=== PATIENT | male | born 1935 | race Caucasian/White ===

== ENCOUNTER 2016-11-26 12:34 | Inpatient (IN) | payer OTHER ==
[~2016-11-26] VITALS: Ht 185.4 cm; Wt 107.7 kg
[2016-11-26] MEDS ORDERED: COREG3.125 M1 PO (13:09)
[2016-11-26] MEDS ORDERED: CRESTOR40 MG PO (13:10)
[2016-11-26] MEDS ORDERED: DOXAZOSIN MESYLA4 MG PO (13:10)
[2016-11-26] MEDS ORDERED: XARELTO20 MG PO (13:11)
[2016-11-26] MEDS ORDERED: LISINOPRIL20 MG PO (13:11)
[2016-11-26] MEDS ORDERED: VESICARE5 MG PO (13:12)
[2016-11-26] MEDS ORDERED: CHLORZOXAZONE (13:13)
[2016-11-26] MEDS ORDERED: TYLENO (13:13)
[2016-11-26 13:41] LABS: BASOPHIL COUNT 0.1 K/uL (0-0.1); EOSINOPHIL (%) 1.1 % (0-5); EOSINOPHIL COUNT 0.1 K/uL (0-0.3); HEMATOCRIT 47.3 % (38.0-50.0); IMMATURE GRANULOCYTE (%) 0.2 % (0.0-0.7); INSTRUMENT ABS NEUTROPHIL CT 6.6 K/uL; LYMPHOCYTE COUNT 0.7 K/uL (1.0-2.8); MCH 32.2 PG (29.0-34.0); MCV 94.6 FL (86-99); MEAN PLAT.VOLUME 10.6 uM^3 (9.0-12.4); MONOCYTE (%) 7.9 % (3-12); MONOCYTE COUNT 0.6 K/uL (0-0.8); NEUTROPHIL (%) 81.5 % (45-76); NEUTROPHIL COUNT 6.6 K/uL (1.8-6.4); PLATELET COUNT 149 K/uL (156-360); RBC DIS.WIDTH-CV 12.8 % (11.8-14.6); RBC DIS.WIDTH-SD 43.8 % (39-53); WHITE BLOOD COUNT 8.1 K/uL (4.1-10.2)
[2016-11-26 13:50] LABS: CHLORIDE 107 mEq/L (99-109); POTASSIUM 3.9 mEq/L (3.7-5.4); SODIUM 142 mEq/L (136-147)
[2016-11-26 13:52] LABS: GLUCOSE 108 mg/dL (70-99)
[2016-11-26 13:54] LABS: ANION GAP 11 MEQ/L (2-14); TOTAL BILIRUBIN 0.8 mg/dL (0.0-1.0)
[2016-11-26 13:56] LABS: ALKALINE PHOSPHATASE 76 IU/L (3-129); GFR ESTIMATE (CALCULATED) > 59 mL/min/
[2016-11-26 13:57] LABS: UREA NITROGEN (BUN) 16 mg/dL (9-23)
[2016-11-26 14:02] LABS: TROP-I INTERPRETATION NEGATIVE; TROPONIN-I 0.03 ng/mL (0.0-0.30)
[2016-11-26 15:11] LABS: ADD MIUA? YES; BILIRUBIN NEGATIVE; BLOOD MODERATE; COLOR YELLOW ((YELLOW)); GLUCOSE (STRIP) NEGATIVE; KETONES NEGATIVE; LEUKOCYTES NEGATIVE; NITRITE NEGATIVE; PROTEIN (STRIP) 100; UROBILINOGEN 0.2 MG/DL (0.2-1.0)
[2016-11-26 15:17] LABS: BACTERIA NONE SEEN /HPF; EPITHELIAL CELLS NONE SEEN /HPF; MUCUS TRACE /LPF; RED BLOOD CELLS NONE SEEN /HPF (0-5); WHITE BLOOD CELLS 0-5 /HPF (0-5)
[2016-11-26] MEDS ORDERED: SUPER BETA PROSTATE PO (17:15)
[2016-11-26 20:48] LABS: TROP-I INTERPRETATION NEGATIVE; TROPONIN-I 0.03 ng/mL (0.0-0.30)
[2016-11-26 21:45] VITALS: BP 165/89
[2016-11-27 01:57] LABS: EOSINOPHIL (%) 0.3 % (0-5); HEMATOCRIT 45.2 % (38.0-50.0); IMMATURE GRANULOCYTE (%) 0.3 % (0.0-0.7); INSTRUMENT ABS NEUTROPHIL CT 8.4 K/uL; LYMPHOCYTE COUNT 0.8 K/uL (1.0-2.8); MCH 31.8 PG (29.0-34.0); MCHC 34.1 G/DL (30.0-36.0); MCV 93.4 FL (86-99); MONOCYTE (%) 9.5 % (3-12); NEUTROPHIL (%) 81.9 % (45-76); NEUTROPHIL COUNT 8.4 K/uL (1.8-6.4); PLATELET COUNT 141 K/uL (156-360); RBC DIS.WIDTH-CV 12.6 % (11.8-14.6); RBC DIS.WIDTH-SD 43.6 % (39-53); RED BLOOD COUNT 4.84 M/uL (4.00-5.50); WHITE BLOOD COUNT 10.2 K/uL (4.1-10.2)
[2016-11-27 02:07] LABS: CHLORIDE 108 mEq/L (99-109); POTASSIUM 3.8 mEq/L (3.7-5.4); SODIUM 140 mEq/L (136-147)
[2016-11-27 02:09] LABS: GLUCOSE 131 mg/dL (70-99)
[2016-11-27 02:10] LABS: ANION GAP 11 MEQ/L (2-14)
[2016-11-27 02:13] LABS: GFR ESTIMATE (CALCULATED) > 59 mL/min/
[2016-11-27 02:14] LABS: UREA NITROGEN (BUN) 15 mg/dL (9-23)
[2016-11-27 02:18] LABS: TROP-I INTERPRETATION NEGATIVE; TROPONIN-I 0.03 ng/mL (0.0-0.30)
[2016-11-27 03:13] LABS: HDL CHOLESTEROL 28 MG/DL (Desirable>=40); LDL CHOLESTEROL 44 mg/dL (Desirable<100); NON-HDL CHOLESTEROL 67 mg/dL (Desirable<160); TOTAL CHOLESTEROL 95 mg/dL (Desirable<200); TRIGLYCERIDES 117 MG/DL (Normal: <150)
[2016-11-27 03:56] VITALS: BP 142/80
[2016-11-27 07:04] LABS: ANION GAP 8 MEQ/L (2-14); CHLORIDE 108 MEQ/L (99-109); GFR ESTIMATE (CALCULATED) > 59 mL/min/; GLUCOSE 120 mg/dL (70-99); POTASSIUM 3.8 MEQ/L (3.7-5.4); SAMPLE HEMOLYSIS CHECK 0; SAMPLE ICTERIC CHECK 0; SAMPLE LIPEMIA CHECK 0; SODIUM 141 MEQ/L (136-147); UREA NITROGEN (BUN) 15 mg/dL (9-23)
[2016-11-27 08:10] VITALS: BP 173/99
[2016-11-27 12:48] VITALS: BP 155/91
[2016-11-27 20:41] VITALS: BP 171/87
[2016-11-28 00:13] VITALS: BP 170/86
[2016-11-28 04:07] VITALS: BP 155/79
[2016-11-28 08:03] VITALS: BP 157/93
[2016-11-28 08:17] LABS: Estimated Average Glucose 123 mg/dL (70-123); HEMOGLOBIN A1c (GLYCOHEMOGLOB) 5.9 % HGB (Below 5.7)
[2016-11-28 19:37] VITALS: BP 163/94
[2016-11-29 11:33] VITALS: BP 185/111
[2016-11-29 19:44] VITALS: BP 173/91
[2016-11-29 23:07] VITALS: BP 155/95
[2016-11-30 04:00] VITALS: BP 191/97
[2016-11-30 07:37] VITALS: BP 162/93
[2016-11-30 12:13] VITALS: BP 166/88
[2016-11-30 12:15] LABS: ADD MIUA? YES; BILIRUBIN NEGATIVE; BLOOD SMALL; COLOR YELLOW ((YELLOW)); GLUCOSE (STRIP) NEGATIVE; KETONES NEGATIVE; LEUKOCYTES NEGATIVE; NITRITE NEGATIVE; PROTEIN (STRIP) 30; SPECIFIC GRAVITY 1.021 (1.000-1.030); UROBILINOGEN 0.2 MG/DL (0.2-1.0)
[2016-11-30 12:32] LABS: BACTERIA NONE SEEN /HPF; EPITHELIAL CELLS RARE /HPF; MUCUS 1+ /LPF; RED BLOOD CELLS 0-5 /HPF (0-5); WHITE BLOOD CELLS 0-5 /HPF (0-5)
[2016-11-30 14:40] LABS: HEMATOCRIT 43.3 % (38.0-50.0); MCH 32.2 PG (29.0-34.0); MCHC 34.2 G/DL (30.0-36.0); MCV 94.1 FL (86-99); MEAN PLAT.VOLUME 10.5 uM^3 (9.0-12.4); PLATELET COUNT 148 K/uL (156-360); RBC DIS.WIDTH-SD 44.3 % (39-53); WHITE BLOOD COUNT 9.4 K/uL (4.1-10.2)
[2016-11-30 15:55] VITALS: BP 178/95
[2016-11-30 15:58] LABS: ANION GAP 6 MEQ/L (2-14); CHLORIDE 106 MEQ/L (99-109); GFR ESTIMATE (CALCULATED) > 59 mL/min/; GLUCOSE 173 mg/dL (70-99); POTASSIUM 4.1 MEQ/L (3.7-5.4); SAMPLE HEMOLYSIS CHECK 0; SAMPLE ICTERIC CHECK 0; SAMPLE LIPEMIA CHECK 0; SODIUM 137 MEQ/L (136-147); UREA NITROGEN (BUN) 20 mg/dL (9-23)
[2016-11-30 19:30] VITALS: BP 165/68
[2016-11-30 23:51] VITALS: BP 160/70
[2016-12-01 03:41] VITALS: BP 150/76
[2016-12-01 07:40] VITALS: BP 188/90
[2016-12-01 12:00] VITALS: BP 146/85
[2016-12-01 15:51] VITALS: BP 156/82
[2016-12-01 20:12] VITALS: BP 170/80
[2016-12-01 23:40] VITALS: BP 180/84
[2016-12-02 03:29] VITALS: BP 166/80
[2016-12-02 07:36] VITALS: BP 171/110
[2016-12-02 10:50] VITALS: BP 156/75
[2016-12-02] MEDS ORDERED: AUGMENTIN875 MG PO (11:24)
== END 2016-12-02 14:33 | DRG 193 ==
LOC: EME 12:34 → 5SOUTH 19:37 → EDOF 19:37 → 5SOUTH 21:29
PROVIDERS: Emergency Medicine; Internal Medicine; Physician Assistant Medical
DX: J18.9 Pneumonia, unspecified organism (principal); G93.41 Metabolic encephalopathy; I48.0 Paroxysmal atrial fibrillation; R55 Syncope and collapse; R33.9 Retention of urine, unspecified; S00.03XA Contusion of scalp, initial encounter; W17.89XA Other fall from one level to another, initial encounter; Z91.81 History of falling; Y93.89 Activity, other specified; S30.813A Abrasion of scrotum and testes, initial encounter; Z79.01 Long term (current) use of anticoagulants; I16.0 Hypertensive urgency; I10 Essential (primary) hypertension; G47.33 Obstructive sleep apnea (adult) (pediatric); N40.1 Benign prostatic hyperplasia with lower urinary tract symptoms; R33.8 Other retention of urine; E78.5 Hyperlipidemia, unspecified; I25.10 Atherosclerotic heart disease of native coronary artery without angina pectoris; Z95.5 Presence of coronary angioplasty implant and graft; G62.9 Polyneuropathy, unspecified; I35.0 Nonrheumatic aortic (valve) stenosis; I25.2 Old myocardial infarction; Z87.891 Personal history of nicotine dependence; R32 Unspecified urinary incontinence; M41.9 Scoliosis, unspecified; E66.9 Obesity, unspecified; Z68.31 Body mass index [BMI] 31.0-31.9, adult; F03.90 Unspecified dementia, unspecified severity, without behavioral disturbance, psychotic disturbance, mood disturbance, and anxiety
CPT/HCPCS: 70450; 71010; 72125; 72131; 80048; 80048 91; 80053; 80061; 81003; 83036; 84484; 85025; 85027; 87070; 87086; 87205; 92610 GN; 93005; 93306; 93880; 94660; 94799; 97530 GO; 97530 GP; 99202; 99281; 99285; J0360; J2270; J2543; J3370; J7030; J7050; J8540

== ENCOUNTER 2017-08-10 21:22 | Emergency (ER) | payer OTHER ==
[~2017-08-10] VITALS: Ht 188 cm; Wt 119.1 kg
[~2017-08-10 21:22] MED LIST: AUGMENTIN875 MG PO; CHLORZOXAZONE; COREG3.125 M1 PO; CRESTOR40 MG PO; DOXAZOSIN MESYLA4 MG PO; LISINOPRIL20 MG PO; SUPER BETA PROSTATE PO; TYLENO; VESICARE5 MG PO; XARELTO20 MG PO
[2017-08-10 21:58] LABS: BASOPHIL (%) 0.5 % (0-1); EOSINOPHIL (%) 0.7 % (0-5); EOSINOPHIL COUNT 0.1 K/uL (0-0.3); HEMATOCRIT 44.2 % (38.0-50.0); HEMOGLOBIN 14.9 G/DL (12.5-16.6); IMMATURE GRANULOCYTE (%) 0.7 % (0.0-0.7); LYMPHOCYTE (%) 2.5 % (15-42); LYMPHOCYTE COUNT 0.2 K/uL (1.0-2.8); MCH 31.4 PG (29.0-34.0); MCHC 33.7 G/DL (30.0-36.0); MCV 93.2 FL (86-99); MONOCYTE (%) 10.2 % (3-12); MONOCYTE COUNT 0.8 K/uL (0-0.8); NEUTROPHIL (%) 85.4 % (45-76); NEUTROPHIL COUNT 6.3 K/uL (1.8-6.4); PLATELET COUNT 116 K/uL (156-360); RBC DIS.WIDTH-SD 44.6 % (39-53); RED BLOOD COUNT 4.74 M/uL (4.00-5.50); WHITE BLOOD COUNT 7.3 K/uL (4.1-10.2)
[2017-08-10 22:08] LABS: ALBUMIN 3.6 g/dL (3.2-4.8)
[2017-08-10 22:09] LABS: CHLORIDE 105 mEq/L (99-109); POTASSIUM 4.3 mEq/L (3.7-5.4); SODIUM 137 mEq/L (136-147)
[2017-08-10 22:11] LABS: GLUCOSE 148 mg/dL (70-99); TOTAL PROTEIN 6.8 g/dL (6.4-8.3)
[2017-08-10 22:13] LABS: TOTAL BILIRUBIN 0.5 mg/dL (0.0-1.0)
[2017-08-10 22:14] LABS: ALKALINE PHOSPHATASE 109 IU/L (3-129)
[2017-08-10 22:15] LABS: CREATININE 1.4 mg/dL (0.6-1.3); GFR ESTIMATE (CALCULATED) 52 mL/min/ (58.99-99999)
[2017-08-10 22:16] LABS: AST (GOT) 24 IU/L (2-34); UREA NITROGEN (BUN) 21 mg/dL (9-23)
[2017-08-10 22:17] LABS: ALT (GPT) 28 IU/L (3-49)
[2017-08-10 22:24] LABS: TROP-I INTERPRETATION NEGATIVE; TROPONIN-I 0.03 ng/mL (0.0-0.30)
[2017-08-10] MEDS ORDERED: AZITHROMYCIN250 MG1 PO (23:59)
[2017-08-10] MEDS ORDERED: AUGMENTIN875 MG PO (23:59)
[2017-08-11 01:55] VITALS: BP 119/74
== END 2017-08-11 02:40 ==
LOC: EME → EDBD 21:22 → EME 21:22
PROVIDERS: Emergency Medicine Emergency Medical Services
DX: J18.9 Pneumonia, unspecified organism (principal); R09.02 Hypoxemia; R41.82 Altered mental status, unspecified; I10 Essential (primary) hypertension; I48.91 Unspecified atrial fibrillation; I25.10 Atherosclerotic heart disease of native coronary artery without angina pectoris; Z86.73 Personal history of transient ischemic attack (TIA), and cerebral infarction without residual deficits; Z95.5 Presence of coronary angioplasty implant and graft; Z85.9 Personal history of malignant neoplasm, unspecified
CPT/HCPCS: 70450; 71045; 80053; 83880; 84484; 85025; 85379; 93005; 99281; 99285; J0456

== ENCOUNTER 2017-09-08 22:59 | Inpatient (IN) | payer OTHER ==
[~2017-09-08] VITALS: Ht 188 cm; Wt 94.0 kg
[~2017-09-08 22:59] MED LIST changes: +AZITHROMYCIN250 MG1 PO
[2017-09-08 23:42] LABS: BASOPHIL (%) 0.9 % (0-1); BASOPHIL COUNT 0.1 K/uL (0-0.1); EOSINOPHIL (%) 5.6 % (0-5); EOSINOPHIL COUNT 0.4 K/uL (0-0.3); HEMATOCRIT 41.4 % (38.0-50.0); HEMOGLOBIN 13.7 G/DL (12.5-16.6); IMMATURE GRANULOCYTE (%) 0.3 % (0.0-0.7); LYMPHOCYTE (%) 12.4 % (15-42); LYMPHOCYTE COUNT 0.9 K/uL (1.0-2.8); MCH 31.1 PG (29.0-34.0); MCHC 33.1 G/DL (30.0-36.0); MCV 93.9 FL (86-99); MONOCYTE (%) 12.1 % (3-12); MONOCYTE COUNT 0.9 K/uL (0-0.8); NEUTROPHIL (%) 68.7 % (45-76); NEUTROPHIL COUNT 4.8 K/uL (1.8-6.4); RBC DIS.WIDTH-CV 13.3 % (11.8-14.6); RBC DIS.WIDTH-SD 46.1 % (39-53); RED BLOOD COUNT 4.41 M/uL (4.00-5.50)
[2017-09-08 23:45] LABS: PLATELET COUNT 151 K/uL (156-360)
[2017-09-08 23:54] LABS: ALBUMIN 3.4 g/dL (3.2-4.8); CHLORIDE 109 mEq/L (99-109); POTASSIUM 3.9 mEq/L (3.7-5.4); SODIUM 142 mEq/L (136-147)
[2017-09-08 23:56] LABS: GLUCOSE 121 mg/dL (70-99); TOTAL PROTEIN 6.4 g/dL (6.4-8.3)
[2017-09-08 23:58] LABS: TOTAL BILIRUBIN 0.3 mg/dL (0.0-1.0)
[2017-09-09] VITALS (7 sets, daily range): BP systolic 110–156; BP diastolic 68–98
[2017-09-09] LABS: ALKALINE PHOSPHATASE 127 IU/L (3-129); CREATININE 1.2 mg/dL (0.6-1.3); GFR ESTIMATE (CALCULATED) > 59 mL/min/ (58.99-99999)
[2017-09-09 00:01] LABS: UREA NITROGEN (BUN) 14 mg/dL (9-23)
[2017-09-09 00:02] LABS: AST (GOT) 12 IU/L (2-34)
[2017-09-09 00:03] LABS: ALT (GPT) 17 IU/L (3-49)
[2017-09-09 00:04] LABS: TROP-I INTERPRETATION NEGATIVE; TROPONIN-I 0.07 ng/mL (0.0-0.30)
[2017-09-09] MEDS ORDERED: IMODIUM A-D2 M2 PO (00:41)
[2017-09-09] MEDS ORDERED: PHILLIPS'400 MG/5 M PO (00:41)
[2017-09-09] MEDS ORDERED: CARDIZEM60 MG PO (00:41)
[2017-09-09] MEDS ORDERED: CALMOSEPTINE O3.5 GM TP (00:42)
[2017-09-09] MEDS ORDERED: ROBITUSSIN DM118 ML PO (00:42)
[2017-09-09] MEDS ORDERED: TYLENOL REGULA325 MG PO (00:42)
[2017-09-09] MEDS ORDERED: FLONASE16 G1 BOTH NARES (00:43)
[2017-09-09] MEDS ORDERED: NYSTOP60 GM TP (00:43)
[2017-09-09] MEDS ORDERED: DUONEB 2.5-0.5 M3 ML AEROSOL (00:45)
[2017-09-09] MEDS ORDERED: AMLODIPINE BESY10 MG PO (00:46)
[2017-09-09] MEDS ORDERED: ZOLOFT50 MG PO (00:46)
[2017-09-09] MEDS ORDERED: ZOCOR20 MG PO (00:47)
[2017-09-09] MEDS ORDERED: PROAIR HFA8.5 GM IH (00:47)
[2017-09-09 17:36] LABS: TROP-I INTERPRETATION NEGATIVE; TROPONIN-I 0.06 ng/mL (0.0-0.30)
[2017-09-10 00:56] LABS: TROP-I INTERPRETATION NEGATIVE; TROPONIN-I 0.07 ng/mL (0.0-0.30)
[2017-09-10 08:41] LABS: HEMOGLOBIN 12.7 G/DL (12.5-16.6); MCH 30.2 PG (29.0-34.0); MCHC 31.8 G/DL (30.0-36.0); MCV 95.2 FL (86-99); PLATELET COUNT 142 K/uL (156-360); RBC DIS.WIDTH-CV 13.4 % (11.8-14.6); RBC DIS.WIDTH-SD 47.3 % (39-53); WHITE BLOOD COUNT 6.5 K/uL (4.1-10.2)
[2017-09-10 08:58] VITALS: BP 140/80
[2017-09-10 09:03] LABS: CHLORIDE 106 MEQ/L (99-109); CREATININE 1.1 MG/DL (0.6-1.3); GFR ESTIMATE (CALCULATED) > 59 mL/min/ (58.99-99999); GLUCOSE 97 mg/dL (70-99); POTASSIUM 3.9 MEQ/L (3.7-5.4); SODIUM 142 MEQ/L (136-147); UREA NITROGEN (BUN) 15 mg/dL (9-23)
[2017-09-10 09:18] LABS: TROP-I INTERPRETATION NEGATIVE; TROPONIN-I 0.06 ng/mL (0.0-0.30)
[2017-09-10 12:06] VITALS: BP 112/59
[2017-09-10 15:45] VITALS: BP 122/67
[2017-09-10 17:20] LABS: TROP-I INTERPRETATION NEGATIVE; TROPONIN-I 0.06 ng/mL (0.0-0.30)
[2017-09-10 19:08] VITALS: BP 158/95
[2017-09-10 22:13] VITALS: BP 128/81
[2017-09-11 04:16] VITALS: BP 151/77
[2017-09-11 07:10] VITALS: BP 141/77
[2017-09-11 11:13] VITALS: BP 128/73
[2017-09-11 15:19] VITALS: BP 122/64
[2017-09-11 19:04] VITALS: BP 127/75
[2017-09-12 00:21] VITALS: BP 130/70
[2017-09-12 04:25] VITALS: BP 126/79
[2017-09-12 08:25] VITALS: BP 147/75
[2017-09-12 08:52] LABS: BASOPHIL (%) 0.1 % (0-1); EOSINOPHIL (%) 0 % (0-5); HEMATOCRIT 39.6 % (38.0-50.0); IMMATURE GRANULOCYTE (%) 0.7 % (0.0-0.7); LYMPHOCYTE (%) 4.2 % (15-42); LYMPHOCYTE COUNT 0.5 K/uL (1.0-2.8); MCH 31.2 PG (29.0-34.0); MCHC 32.8 G/DL (30.0-36.0); MONOCYTE (%) 6.6 % (3-12); MONOCYTE COUNT 0.7 K/uL (0-0.8); NEUTROPHIL (%) 88.4 % (45-76); NEUTROPHIL COUNT 9.5 K/uL (1.8-6.4); PLATELET COUNT 152 K/uL (156-360); RBC DIS.WIDTH-CV 13.2 % (11.8-14.6); RBC DIS.WIDTH-SD 46.5 % (39-53); RED BLOOD COUNT 4.17 M/uL (4.00-5.50); WHITE BLOOD COUNT 10.8 K/uL (4.1-10.2)
[2017-09-12 09:06] LABS: CHLORIDE 106 MEQ/L (99-109); GFR ESTIMATE (CALCULATED) > 59 mL/min/ (58.99-99999); GLUCOSE 137 mg/dL (70-99); POTASSIUM 4.2 MEQ/L (3.7-5.4); SODIUM 141 MEQ/L (136-147); UREA NITROGEN (BUN) 21 mg/dL (9-23)
[2017-09-12 12:30] VITALS: BP 137/68
[2017-09-12 19:35] VITALS: BP 133/78
[2017-09-12 22:30] VITALS: BP 140/81
[2017-09-13 04:25] VITALS: BP 138/76
[2017-09-13 05:40] LABS: BASOPHIL (%) 0.1 % (0-1); EOSINOPHIL (%) 0 % (0-5); HEMATOCRIT 38.5 % (38.0-50.0); HEMOGLOBIN 12.6 G/DL (12.5-16.6); LYMPHOCYTE (%) 2.7 % (15-42); LYMPHOCYTE COUNT 0.3 K/uL (1.0-2.8); MCHC 32.7 G/DL (30.0-36.0); MCV 94.6 FL (86-99); MONOCYTE (%) 6.6 % (3-12); MONOCYTE COUNT 0.7 K/uL (0-0.8); NEUTROPHIL (%) 89.6 % (45-76); NEUTROPHIL COUNT 9.6 K/uL (1.8-6.4); PLATELET COUNT 161 K/uL (156-360); RBC DIS.WIDTH-CV 13.2 % (11.8-14.6); RBC DIS.WIDTH-SD 45.2 % (39-53); RED BLOOD COUNT 4.07 M/uL (4.00-5.50); WHITE BLOOD COUNT 10.7 K/uL (4.1-10.2)
[2017-09-13 07:30] VITALS: BP 157/86
[2017-09-13 12:22] VITALS: BP 147/77
[2017-09-13] MEDS ORDERED: ADVAIR HFA120 INHALA IH (13:34)
[2017-09-13] MEDS ORDERED: CARDIZEM60 MG PO (13:35)
[2017-09-13] MEDS ORDERED: AUGMENTIN875 MG PO (13:36)
[2017-09-13] MEDS ORDERED: PREDNISONE10 MG PO (13:37)
== END 2017-09-13 16:49 | DRG 308 ==
LOC: EME 22:59 → EDOF 09-09 00:40 → 4EAST 09-09 00:40 → ENRESERV 09-09 01:11 → 4EAST 09-09 02:51
PROVIDERS: Emergency Medicine; Family Medicine
DX: I48.2 Chronic atrial fibrillation (principal); J18.9 Pneumonia, unspecified organism; J98.01 Acute bronchospasm; I49.5 Sick sinus syndrome; E78.5 Hyperlipidemia, unspecified; G47.33 Obstructive sleep apnea (adult) (pediatric); I10 Essential (primary) hypertension; I25.10 Atherosclerotic heart disease of native coronary artery without angina pectoris; I35.0 Nonrheumatic aortic (valve) stenosis; N40.0 Benign prostatic hyperplasia without lower urinary tract symptoms; F32.9 Major depressive disorder, single episode, unspecified; G62.9 Polyneuropathy, unspecified; M48.061 Spinal stenosis, lumbar region without neurogenic claudication; E66.01 Morbid (severe) obesity due to excess calories; Z96.653 Presence of artificial knee joint, bilateral; Z66 Do not resuscitate; Z95.5 Presence of coronary angioplasty implant and graft; Z79.01 Long term (current) use of anticoagulants; Z68.26 Body mass index [BMI] 26.0-26.9, adult
CPT/HCPCS: 71045; 71046; 71250; 80048; 80053; 81003; 83605; 83880; 84484; 85025; 85027; 87641; 93005; 94640; 94640 76; 94799; 97530 GO; 97530 GP; 99202; 99281; 99285; J0456; J0692; J2920; J2930; J7050; J7512

== ENCOUNTER 2017-11-18 17:18 | Inpatient (IN) | payer OTHER ==
[~2017-11-18] VITALS: Ht 182.9 cm; Wt 108.6 kg
[~2017-11-18 17:18] MED LIST changes: +ADVAIR HFA120 INHALA IH; +AMLODIPINE BESY10 MG PO; +CALMOSEPTINE O3.5 GM TP; +CARDIZEM60 MG PO; +DUONEB 2.5-0.5 M3 ML AEROSOL; +FLONASE16 G1 BOTH NARES; +IMODIUM A-D2 M2 PO; +NYSTOP60 GM TP; +PHILLIPS'400 MG/5 M PO; +PREDNISONE10 MG PO; +PROAIR HFA8.5 GM IH; +ROBITUSSIN DM118 ML PO; +TYLENOL REGULA325 MG PO; +ZOCOR20 MG PO; +ZOLOFT50 MG PO
[2017-11-18 17:51] LABS: BASE EXCESS -0.2 mEq/L (-3 to +3); BICARBONATE 26.4 mEq/L (22-26); CARBOXY HGB 2.1 % (0-5); METHEMOGLOBIN 1.1 % (0-1.5); PCO2 49 mm Hg (35-45); PO2 227 mm Hg (80-100); pH 7.34 (7.35-7.45)
[2017-11-18 17:52] LABS: COMMENTS - BLOOD GASES A+C+; CONTINUOUS POS AIRWAY PRESSURE 5 cm H2O; DEVICE 840 MASK; FI02 80 %; MODE SPONT; PRES. SUPPORT 10 CM/H2O; SITE RR; TOTAL RESP RATE 24 resp/min
[2017-11-18 18:06] LABS: BASOPHIL (%) 0.1 % (0-1); EOSINOPHIL (%) 0.2 % (0-5); HEMATOCRIT 42.9 % (38.0-50.0); HEMOGLOBIN 13.3 G/DL (12.5-16.6); IMMATURE GRANULOCYTE (%) 0.5 % (0.0-0.7); LYMPHOCYTE (%) 1.4 % (15-42); LYMPHOCYTE COUNT 0.1 K/uL (1.0-2.8); MONOCYTE (%) 6.8 % (3-12); MONOCYTE COUNT 0.6 K/uL (0-0.8); NEUTROPHIL COUNT 8.1 K/uL (1.8-6.4); PLATELET COUNT 95 K/uL (156-360); RBC DIS.WIDTH-CV 15.2 % (11.8-14.6); RBC DIS.WIDTH-SD 56.5 % (39-53); RED BLOOD COUNT 4.29 M/uL (4.00-5.50); WHITE BLOOD COUNT 8.9 K/uL (4.1-10.2)
[2017-11-18 18:13] LABS: INTER. NORMALIZED RATIO 2.2
[2017-11-18 18:16] LABS: CHLORIDE 112 mEq/L (99-109); PTT 38.3 SEC (25-37); SODIUM 139 mEq/L (136-147)
[2017-11-18 18:17] LABS: GLUCOSE 82 mg/dL (70-99)
[2017-11-18 18:21] LABS: CREATININE 0.8 mg/dL (0.6-1.3); GFR ESTIMATE (CALCULATED) > 59 mL/min/ (58.99-99999)
[2017-11-18 18:22] LABS: POTASSIUM 3.2 mEq/L (3.7-5.4); UREA NITROGEN (BUN) 21 mg/dL (9-23)
[2017-11-18 18:30] LABS: TROP-I INTERPRETATION NEGATIVE
[2017-11-18] MEDS ORDERED: FUROSEMIDE20 MG PO (19:00)
[2017-11-18] MEDS ORDERED: KLOR-CON M2020 MEQ PO (19:01)
[2017-11-18] MEDS ORDERED: MORPHINE CON20 MG/M1 PO (19:02)
[2017-11-18] MEDS ORDERED: CARDIZEM60 MG PO (19:02)
[2017-11-18] MEDS ORDERED: LIPITOR10 MG PO (19:04)
[2017-11-18] MEDS ORDERED: OMEPRAZOLE40 M1 PO (19:05)
[2017-11-18] MEDS ORDERED: DULCOLAX10 MG PR (19:05)
[2017-11-18] MEDS ORDERED: ATROVENT 00.5 MG/2.5 IH (19:06)
[2017-11-18 23:07] VITALS: BP 109/86
[2017-11-19] VITALS (25 sets, daily range): BP systolic 85–136; BP diastolic 30–102
[2017-11-19 04:53] LABS: HEMATOCRIT 47.5 % (38.0-50.0); HEMOGLOBIN 14.9 G/DL (12.5-16.6); MCH 31.1 PG (29.0-34.0); MCHC 31.4 G/DL (30.0-36.0); MCV 99.2 FL (86-99); PLATELET COUNT 102 K/uL (156-360); RBC DIS.WIDTH-CV 14.9 % (11.8-14.6); RED BLOOD COUNT 4.79 M/uL (4.00-5.50); WHITE BLOOD COUNT 10.8 K/uL (4.1-10.2)
[2017-11-19 05:00] LABS: CHLORIDE 111 mEq/L (99-109); SODIUM 144 mEq/L (136-147)
[2017-11-19 05:01] LABS: MAGNESIUM 2.2 mg/dL (1.3-2.7)
[2017-11-19 05:03] LABS: GLUCOSE 108 mg/dL (70-99); POTASSIUM 4.6 mEq/L (3.7-5.4)
[2017-11-19 05:05] LABS: PHOSPHORUS 3.9 mg/dL (2.5-4.9)
[2017-11-19 05:06] LABS: CREATININE 1.2 mg/dL (0.6-1.3); GFR ESTIMATE (CALCULATED) > 59 mL/min/ (58.99-99999)
[2017-11-19 05:07] LABS: UREA NITROGEN (BUN) 28 mg/dL (9-23)
[2017-11-19 22:07] LABS: C DIFF TOXIN POSITIVE (NEGATIVE)
[2017-11-20] VITALS (22 sets, daily range): BP systolic 18–155; BP diastolic 58–101
[2017-11-20 14:02] LABS: ALBUMIN 2.8 G/DL (3.2-4.8); ALKALINE PHOSPHATASE 95 IU/L (3-129); ALT (GPT) 16 IU/L (3-49); AST (GOT) 12 IU/L (2-34); DIRECT BILIRUBIN 0.2 mg/dL (0.0-0.3); TOTAL BILIRUBIN 0.8 MG/DL (0.0-1.0); TOTAL PROTEIN 5.1 G/DL (6.4-8.3)
[2017-11-21] VITALS (17 sets, daily range): BP systolic 113–172; BP diastolic 83–104
[2017-11-22 00:07] VITALS: BP 170/90
[2017-11-22 04:11] VITALS: BP 147/90
[2017-11-22 07:52] LABS: HEMATOCRIT 45.4 % (38.0-50.0); HEMOGLOBIN 14.2 G/DL (12.5-16.6); MCH 29.8 PG (29.0-34.0); MCHC 31.3 G/DL (30.0-36.0); PLATELET COUNT 109 K/uL (156-360); RBC DIS.WIDTH-CV 14.3 % (11.8-14.6); RBC DIS.WIDTH-SD 50.5 % (39-53); RED BLOOD COUNT 4.77 M/uL (4.00-5.50); WHITE BLOOD COUNT 5.8 K/uL (4.1-10.2)
[2017-11-22 07:55] LABS: MCV 95.2 FL (86-99)
[2017-11-22 08:02] VITALS: BP 173/87
[2017-11-22 11:48] VITALS: BP 139/93
[2017-11-22 15:15] VITALS: BP 136/81
[2017-11-22 20:03] VITALS: BP 164/85
[2017-11-23 00:05] VITALS: BP 136/95
[2017-11-23 04:21] VITALS: BP 131/93
[2017-11-23 07:03] VITALS: BP 175/103
[2017-11-23 09:05] LABS: BASOPHIL (%) 0.8 % (0-1); BASOPHIL COUNT 0.1 K/uL (0-0.1); EOSINOPHIL (%) 3.3 % (0-5); EOSINOPHIL COUNT 0.2 K/uL (0-0.3); HEMOGLOBIN 15.3 G/DL (12.5-16.6); IMMATURE GRANULOCYTE (%) 0.6 % (0.0-0.7); LYMPHOCYTE (%) 7.7 % (15-42); LYMPHOCYTE COUNT 0.5 K/uL (1.0-2.8); MCH 30.7 PG (29.0-34.0); MCHC 32.6 G/DL (30.0-36.0); MCV 94.2 FL (86-99); MONOCYTE (%) 10.2 % (3-12); MONOCYTE COUNT 0.7 K/uL (0-0.8); NEUTROPHIL (%) 77.4 % (45-76); NEUTROPHIL COUNT 5.2 K/uL (1.8-6.4); PLATELET COUNT 129 K/uL (156-360); RBC DIS.WIDTH-CV 14.5 % (11.8-14.6); RBC DIS.WIDTH-SD 50.1 % (39-53); RED BLOOD COUNT 4.99 M/uL (4.00-5.50); WHITE BLOOD COUNT 6.7 K/uL (4.1-10.2)
[2017-11-23 09:31] LABS: CHLORIDE 106 MEQ/L (99-109); CREATININE 0.8 MG/DL (0.6-1.3); GFR ESTIMATE (CALCULATED) > 59 mL/min/ (58.99-99999); GLUCOSE 111 mg/dL (70-99); POTASSIUM 3.9 MEQ/L (3.7-5.4); SODIUM 142 MEQ/L (136-147); UREA NITROGEN (BUN) 11 mg/dL (9-23)
[2017-11-23 11:25] VITALS: BP 146/86
[2017-11-23 15:32] VITALS: BP 160/91
[2017-11-23 20:20] VITALS: BP 122/71
[2017-11-24 00:18] VITALS: BP 130/80
[2017-11-24 04:08] VITALS: BP 147/82
[2017-11-24 06:57] LABS: BASOPHIL (%) 0.6 % (0-1); BASOPHIL COUNT 0.1 K/uL (0-0.1); EOSINOPHIL (%) 4.5 % (0-5); EOSINOPHIL COUNT 0.4 K/uL (0-0.3); HEMATOCRIT 44.2 % (38.0-50.0); HEMOGLOBIN 14.1 G/DL (12.5-16.6); IMMATURE GRANULOCYTE (%) 0.4 % (0.0-0.7); LYMPHOCYTE (%) 6.4 % (15-42); LYMPHOCYTE COUNT 0.5 K/uL (1.0-2.8); MCHC 31.9 G/DL (30.0-36.0); MONOCYTE COUNT 0.8 K/uL (0-0.8); NEUTROPHIL (%) 78.1 % (45-76); NEUTROPHIL COUNT 6.1 K/uL (1.8-6.4); PLATELET COUNT 110 K/uL (156-360); RBC DIS.WIDTH-CV 14.3 % (11.8-14.6); RBC DIS.WIDTH-SD 49.9 % (39-53); WHITE BLOOD COUNT 7.8 K/uL (4.1-10.2)
[2017-11-24 07:21] LABS: CHLORIDE 106 MEQ/L (99-109); CREATININE 0.9 MG/DL (0.6-1.3); GFR ESTIMATE (CALCULATED) > 59 mL/min/ (58.99-99999); GLUCOSE 106 mg/dL (70-99); POTASSIUM 3.5 MEQ/L (3.7-5.4); SODIUM 143 MEQ/L (136-147); UREA NITROGEN (BUN) 10 mg/dL (9-23)
[2017-11-24 07:38] VITALS: BP 138/80
[2017-11-24] MEDS ORDERED: LORAZEPAM0.5 MG PO (10:58)
[2017-11-24] MEDS ORDERED: LEVOFLOXACIN750 MG PO (10:58)
[2017-11-24] MEDS ORDERED: MORPHINE CON20 MG/M1 PO (10:58)
[2017-11-24] MEDS ORDERED: HYOSCYAMINE0.125 MG PO (10:58)
[2017-11-24] MEDS ORDERED: VANCOCIN HCL125 MG PO (10:58)
== END 2017-11-24 13:44 | disposition hospice, home (50) | DRG 189 ==
LOC: EME 17:18 → 4WEST 22:10 → EDOF 22:10 → ENRESERV 22:12 → 4WEST 23:10 → ENRESERV 11-21 15:28 → 2EAST 11-21 17:39
PROVIDERS: Emergency Medicine; Internal Medicine; Internal Medicine Cardiovascular Disease; Surgery
PROC: 5A09357 Assistance with Respiratory Ventilation, Less than 24 Consecutive Hours, Continuous Positive Airway Pressure (ICD-10-PCS; principal; 2017-11-18)
DX: J96.21 Acute and chronic respiratory failure with hypoxia (principal); J44.1 Chronic obstructive pulmonary disease with (acute) exacerbation; J15.9 Unspecified bacterial pneumonia; J44.0 Chronic obstructive pulmonary disease with (acute) lower respiratory infection; I48.2 Chronic atrial fibrillation; R78.81 Bacteremia; B95.2 Enterococcus as the cause of diseases classified elsewhere; A04.72 Enterocolitis due to Clostridium difficile, not specified as recurrent; Z99.81 Dependence on supplemental oxygen; I10 Essential (primary) hypertension; E78.5 Hyperlipidemia, unspecified; I25.10 Atherosclerotic heart disease of native coronary artery without angina pectoris; G62.9 Polyneuropathy, unspecified; F32.9 Major depressive disorder, single episode, unspecified; N40.0 Benign prostatic hyperplasia without lower urinary tract symptoms; Z66 Do not resuscitate; Z51.5 Encounter for palliative care; E66.9 Obesity, unspecified; Z68.32 Body mass index [BMI] 32.0-32.9, adult; M48.00 Spinal stenosis, site unspecified; L89.329 Pressure ulcer of left buttock, unspecified stage; E87.6 Hypokalemia; E83.51 Hypocalcemia; R79.1 Abnormal coagulation profile; T45.515A Adverse effect of anticoagulants, initial encounter; D69.6 Thrombocytopenia, unspecified; I95.9 Hypotension, unspecified; I35.0 Nonrheumatic aortic (valve) stenosis; G47.33 Obstructive sleep apnea (adult) (pediatric); I71.4 Abdominal aortic aneurysm, without rupture; R41.0 Disorientation, unspecified; R63.3 Feeding difficulties; Z87.01 Personal history of pneumonia (recurrent); Z95.5 Presence of coronary angioplasty implant and graft; Z96.653 Presence of artificial knee joint, bilateral
CPT/HCPCS: 36415; 36600; 71045; 74230; 80048; 80076; 82330; 82746; 82803; 83605; 83735; 83880; 84100; 84132; 84484; 85025; 85027; 85610; 85730; 87040; 87077; 87186; 87493; 87641; 87801; 92610 GN; 92611 GN; 93005; 93306; 94002; 94640; 94640 76; 94660; 94760; 94799; 99202; 99281; 99285; A6214; J0282; J0295; J0456; J0610; J1160; J1644; J2310; J2543; J3370; J3475; J3480; J7030; J7050